=== PATIENT | male | born 1940 | race Caucasian/White ===

== ENCOUNTER → 2018-03-01 | Day surgery (SDC) | payer OTHER, BC ==
[~2018-03-01] MED LIST: BACITRACIN 3.5 GM OPTHALMIC OINT TUBE ONE; BUPIVACAINE HCL/PF 0.5% (5MG/ML) 10 ML VIAL ONE; LIDOCAINE 1%/EPI 1:100000 (20 ML MULTI DOSE VIAL) ONE; POVIDONE-IODINE 5% OPHTHALMIC PREP 30 ML SOLUTION ONE; SODIUM CHLORIDE 1,000 ML IV SCH; TETRACAINE 0.5% OPHTH SOLN 2 ML BOTTLE ONE
[2018-03-01 08:20] VITALS: BP 120/73; PULSE 85; TEMP 98; BMI 26.6
[2018-03-01] MEDS: INSULIN REGULAR HUMAN 100 UNITS/ML *VIAL ONE ×2 (09:05→10:00)
[2018-03-01 11:30] LABS: ANION GAP 7 (8-16); BLOOD UREA NITROGEN 36 mg/dl (7-18); CALCIUM 8.9 mg/dl (8.4-10.2); CHLORIDE 101 mmol/L (98-107); CO2 26 mmol/L (22-28); CREATININE 1.2 mg/dl (0.6-1.3); POTASSIUM 4.6 mmol/L (3.5-5.1); SODIUM 134 mmol/L (136-145)
[2018-03-01 11:33] LABS: GLUCOSE,RANDOM 329 mg/dl (74-106)
== END | disposition home or self-care (01) ==
LOC: FASU 07:27
PROVIDERS: ATTEND Ophthalmology
PROC: 08BQ0ZZ Excision of Right Lower Eyelid, Open Approach (ICD-10-PCS; principal; 2018-03-01)
DX: H02.112 Cicatricial ectropion of right lower eyelid (principal); Z53.09 Procedure and treatment not carried out because of other contraindication
CPT/HCPCS: 36415; 80048; 82962